=== PATIENT | male | born 2000 | race Hispanic/Latino ===

== ENCOUNTER 2018-11-02 15:19 | Emergency (ER) | payer SELFPAY ==
[2018-11-02 16:12] LABS: Absolute Lymphocytes (CBC) 1.4 K/uL (0.7-4.9); Basophils % 0.4 % (0-1.3); Lymphocytes % 14.1 % (15.3-44.8); MPV 11.4 fL (7.6-11.3)
[2018-11-02 16:31] LABS: Albumin 4.1 g/dL (3.4-5.0); Bilirubin Total 0.8 mg/dL (0.2-1.0); Potassium 3.4 mmol/L (3.5-5.1); Protein, Total 7.5 g/dL (6.4-8.2)
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
[2018-11-02] MEDS ORDERED: LIDOCAINE 1% MPF 5 ML VIAL ONE (17:11)
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
[2018-11-02] MEDS ORDERED: TETANUS & DIPHTHERIA TOX,ADULT 0.5 ML VIAL ONE (17:31)
[2018-11-02 19:18] VITALS: BP 130/72; TEMP 99.7; O2SAT 100
== END 2018-11-02 17:42 | disposition home or self-care (01) ==
LOC: ER 15:19
PROC: 0JQ00ZZ Repair Scalp Subcutaneous Tissue and Fascia, Open Approach (ICD-10-PCS; principal; 2018-11-02)
DX: S01.01XA Laceration without foreign body of scalp, initial encounter (principal); V49.40XA Driver injured in collision with unspecified motor vehicles in traffic accident, initial encounter; Z23 Encounter for immunization; Z72.0 Tobacco use
CPT/HCPCS: 36415; 70450; 71260; 72125; 74177; 80053; 85025; 90471; 90714; 99285; Q9967

== ENCOUNTER 2018-11-09 11:32 | Emergency (ER) | payer SELFPAY ==
--- NOTE | 2018-11-09 12:05 | EDPHYS ---
Physician Documentation [facility] Name: Juan Diego Li Age: 18 yrs Sex: Male : 2000 Arrival Date: 11/09/2018 Time: 11:36 Bed 20 Private MD: ED Physician Gianfranco Asencio HPI: 11/09 11:56 This 18 yrs old Male presents to ER via Ambulatory with complaints of Suture cp Removal. 11:56 The patient has stella on the scalp. Previous treatment: The patient was initially cp treated on November 02, 2018, the care was rendered at [facility], Treatment type: The patient's original treatment included stella. Sutures/stella progress: The patient has no c/o's. The wound is well-healing with no redness, swelling, discharge, or dehiscence reported. Historical: - Allergies: 11:56 No Known Allergies; ca1 - Home Meds: 11:56 None [Active]; ca1 - PMHx: 11:56 None; ca1 - PSHx: 11:56 None; ca1 - Immunization history:: Adult Immunizations up to date. - Social history:: Smoking status: Patient/guardian denies using tobacco. - Ebola Screening: : Patient negative for fever greater than or equal to 101.5 degrees Fahrenheit, and additional compatible Ebola Virus Disease symptoms Patient denies exposure to infectious person Patient denies travel to an Ebola-affected area in the 21 days before illness onset No symptoms or risks identified at this time. ROS: 11:57 Constitutional: Negative for body aches, chills, fever, poor PO intake. cp 11:57 Skin: Positive for laceration(s), of the scalp. 11:57 All other systems are negative. Exam: 11:58 Skin: Wound recheck: Staple laceration closure: the edges are well approximated, no cp evidence of dehiscence, no drainage, no erythema, no swelling. Vital Signs: 11:56 BP 116 / 68; Pulse 64; Resp 17 S; Temp 98.7(O); Pulse Ox 100% on R/A; Weight 61.23 kg ca1 (R); Height 5 ft. 3 in. (160.02 cm) (R); Pain 0/10; 11:56 Body Mass Index 23.91 (61.23 kg, 160.02 cm) ca1 MDM: 11:51 Patient medically screened. cp 11:59 Data reviewed: vital signs, nurses notes, and as a result, I will discharge patient. cp 12:03 Counseling: I had a detailed discussion with the patient and/or guardian regarding: the cp historical points, exam findings, and any diagnostic results supporting the discharge/admit diagnosis, to return to the emergency department if symptoms worsen or persist or if there are any questions or concerns that arise at home. Administered Medications: No medications were administered Disposition: 12:15 Chart complete. cp 13:27 Co-signature as Attending Physician, Gianfranco Asencio MD I agree with the assessment and kdr plan of care. Disposition: 11/09/18 12:04 Discharged to Home. Impression: Encounter for examination and observation for unspecified reason - removal stella. - Condition is Stable. - Discharge Instructions: Wound Care. - Medication Reconciliation Form, Thank You Letter, Antibiotic Education, Prescription Opioid Use form. - Follow up: Private Physician; When: As needed; Reason: Worsening of condition. - Problem is new. - Symptoms have improved. Signatures: Gianfranco Asencio MD MD [facility] Albino Almonte PA PA cp Tawanna Carvajal RN RN ca1 Corrections: (The following items were deleted from the chart) 12:09 12:04 11/09/2018 12:04 Discharged to Home. Impression: Encounter for examination and ca1 observation for unspecified reason - removal stella. Condition is Stable. Forms are Medication Reconciliation Form, Thank You Letter, Antibiotic Education, Prescription Opioid Use. Follow up: Private Physician; When: As needed; Reason: Worsening of condition. Problem is new. Symptoms have improved. cp
--- NOTE | 2018-11-09 12:05 | ER ---
Nurse's Notes [facility] Name: Juan Diego Li Age: 18 yrs Sex: Male : 2000 Arrival Date: 11/09/2018 Time: 11:36 Bed 20 Private MD: Diagnosis: Encounter for examination and observation for unspecified reason-removal stella Presentation: 11/09 11:54 Presenting complaint: Patient states: schedule for suture removal today. [place] on L ca1 temporal area placed on 11/02/18. Transition of care: patient was not received from another setting of care. Onset of symptoms was November 09, 2018. Risk Assessment: Do you want to hurt yourself or someone else? Patient reports no desire to harm self or others. Initial Sepsis Screen: Does the patient meet any 2 criteria? No. Patient's initial sepsis screen is negative. Does the patient have a suspected source of infection? No. Patient's initial sepsis screen is negative. Care prior to arrival: None. 11:54 Method Of Arrival: Ambulatory ca1 11:54 Acuity: AMADO 5 ca1 Historical: - Allergies: 11:56 No Known Allergies; ca1 - Home Meds: 11:56 None [Active]; ca1 - PMHx: 11:56 None; ca1 - PSHx: 11:56 None; ca1 - Immunization history:: Adult Immunizations up to date. - Social history:: Smoking status: Patient/guardian denies using tobacco. - Ebola Screening: : Patient negative for fever greater than or equal to 101.5 degrees Fahrenheit, and additional compatible Ebola Virus Disease symptoms Patient denies exposure to infectious person Patient denies travel to an Ebola-affected area in the 21 days before illness onset No symptoms or risks identified at this time. Screenin:57 Abuse screen: Denies threats or abuse. Denies injuries from another. Nutritional ca1 screening: No deficits noted. Tuberculosis screening: No symptoms or risk factors identified. Fall Risk None identified. Assessment: 11:57 General: Appears in no apparent distress. comfortable, Behavior is calm, cooperative, ca1 appropriate for age. Pain: Denies pain. Derm: Skin is intact, is healthy with good turgor, Skin is pink, warm \T\ dry. stella on L temporal area. Musculoskeletal: Circulation, motion, and sensation intact. Capillary refill < 3 seconds, Range of motion: intact in all extremities. Vital Signs: 11:56 BP 116 / 68; Pulse 64; Resp 17 S; Temp 98.7(O); Pulse Ox 100% on R/A; Weight 61.23 kg ca1 (R); Height 5 ft. 3 in. (160.02 cm) (R); Pain 0/10; 11:56 Body Mass Index 23.91 (61.23 kg, 160.02 cm) ca1 ED Course: 11:36 Patient arrived in ED. mr 11:48 Albino Almonte PA is PHCP. cp 11:48 Gianfranco Asencio MD is Attending Physician. cp 11:54 Tawanna Carvajal RN is Primary Nurse. ca1 11:56 Triage completed. ca1 11:56 Arm band placed on right wrist. ca1 11:57 Patient has correct armband on for positive identification. Bed in low position. Call ca1 light in reach. Side rails up X 1. Pulse ox on. NIBP on. 11:57 No provider procedures requiring assistance completed. Patient did not have IV access ca1 during this emergency room visit. Removal of 11:59 Removal of Removed stella from scalp [place] site is well healed Patient tolerated ca1 well. Administered Medications: No medications were administered Outcome: 12:04 Discharge ordered by . cp 12:09 Discharged to home ambulatory, with family. ca1 12:09 Condition: stable 12:09 Discharge instructions given to patient, Instructed on discharge instructions, follow up and referral plans. Demonstrated understanding of instructions, follow-up care. 12:09 Patient left the ED. ca1 Signatures: Marin, Mila gandhi Albino Amlonte PA PA cp Tawanna Carvajal RN RN ca1
[2018-11-09 12:14] VITALS: BP 116/68; TEMP 98.7; O2SAT 100
== END 2018-11-09 12:09 | disposition home or self-care (01) ==
LOC: ER 11:32
DX: Z48.02 Encounter for removal of sutures (principal)
CPT/HCPCS: 99283